=== PATIENT | male | born 1965 | race Caucasian/White ===

== ENCOUNTER 2022-12-20 11:16 | Emergency (ER) | payer BC, MEDICAID ==
[~2022-12-20] VITALS: Ht 172.7 cm; Wt 72.0 kg
[~2022-12-20 11:16] MED LIST: ASPI-1071 PO; ATOR20TA66 PO; CLOP75TA34 PO
--- NOTE | 2022-12-20 11:52 | NUR ---
to ct scan.
[2022-12-20 11:54] LABS: BASOPHILS # (AUTO) 0.1 X10'3 (0-0.2); BASOPHILS % (AUTO) 1.3 % (0-1); EOSINOPHILS # (AUTO) 0.2 X10'3 (0-0.9); HEMATOCRIT 47.4 % (42.0-52.0); LYMPHOCYTES # (AUTO) 1.2 X10'3 (1.1-4.8); LYMPHOCYTES % (AUTO) 20.7 % (21-51); MEAN CORPUSCULAR HGB CONC 33.8 g/dL (33.0-36.5); MEAN CORPUSCULAR VOLUME 88.8 FL (78-98); MEAN PLATELET VOLUME 8.5 FL (7.4-10.4); MONOCYTES # (AUTO) 0.5 X10'3 (0-0.9); MONOCYTES % (AUTO) 9.5 % (2-12); NEUTROPHILS # (AUTO) 3.6 X10'3 (1.8-7.7); NEUTROPHILS % (AUTO) 64.5 % (42-75); PLATELET COUNT 264 X10'3 (140-440); RED BLOOD COUNT 5.34 X10'6 (4.70-6.10); RED CELL DISTRIBUTION WIDTH 13.5 % (11.5-14.5); WHITE BLOOD COUNT 5.7 X10'3 (4.5-11.0)
[2022-12-20 12:01] LABS: APTT 26 SECONDS (22-32)
[2022-12-20 12:04] LABS: ALANINE AMINOTRANSFERASE 21 U/L (12-78); ALBUMIN 3.9 G/DL (3.4-5.0); ALBUMIN/GLOBULIN RATIO 1.2 (1.1-1.5); ALKALINE PHOSPHATASE 117 IU/L (46-116); ANION GAP 5 (8-16); ASPARTATE AMINO TRANSFERASE 18 U/L (10-37); BILIRUBIN,TOTAL 0.5 MG/DL (0.1-1.0); BLOOD UREA NITROGEN 9 MG/DL (7-18); BUN/CREATININE RATIO 9.4 (5.4-32.0); CALCIUM 9.1 MG/DL (8.5-10.1); CHLORIDE 101 MMOL/L (99-107); CREATININE 0.96 MG/DL (0.60-1.10); GLUCOSE 124 MG/DL (70-104); POTASSIUM 3.5 MMOL/L (3.5-5.1); SODIUM 139 MMOL/L (135-145); TOTAL CARBON DIOXIDE 33.1 MMOL/L (24-32); TOTAL PROTEIN 7.2 G/DL (6.4-8.2); eGFR 80 ML/MIN
--- NOTE | 2022-12-20 12:49 | NUR ---
dr betts at bedside.
--- NOTE | 2022-12-20 13:32 | NUR ---
Spoke w/ Dr. Rivera. Plan is to dc pt on Carvedilol 12.5mg. Pt's neuro symptoms are not worsening. Current BP is 191/116.
[2022-12-20] MEDS ORDERED: LORazepam 2 mg/ml vial IV ONE (14:05)
--- NOTE | 2022-12-20 14:18 | NUR ---
Lorazepam given IV per MD order. Pt to MRI.
--- NOTE | 2022-12-20 14:42 | NUR ---
T/C from MRI stating they were only able to scan pt sitting up due to his back and arm pain. They feel they got enough for a dx.
[2022-12-20] MEDS ORDERED: carVEDilol 12.5mg tablet PO ONE (15:10)
[2022-12-20] MEDS ORDERED: cloNIDine 0.1 mg tablet PO ONE (17:05)
[2022-12-20] MEDS ORDERED: CARV-50 PO (17:17)
[2022-12-20] MEDS ORDERED: ASPI81TA52 PO (17:17)
[2022-12-20] MEDS ORDERED: ATOR40TA PO (17:17)
[2022-12-20] MEDS ORDERED: PREG50CA PO (17:17)
[2022-12-20 17:21] VITALS: BP 142/98
[2022-12-20] MEDS ORDERED: carVEDilol 12.5mg tablet PO SCH (20:00)
== END 2022-12-20 17:22 | disposition home or self-care (01) ==
LOC: ER 11:16
DX: I63.9 Cerebral infarction, unspecified (principal); I10 Essential (primary) hypertension; J44.9 Chronic obstructive pulmonary disease, unspecified; F17.200 Nicotine dependence, unspecified, uncomplicated; F15.20 Other stimulant dependence, uncomplicated; Z76.0 Encounter for issue of repeat prescription; Z91.14 Patient's other noncompliance with medication regimen; Z88.2 Allergy status to sulfonamides
CPT/HCPCS: 36415; 70450; 70551; 71045; 80053; 82948; 85025; 85610; 85730; 93005; 96374; 99285; J2060

== ENCOUNTER 2023-02-27 18:53 | Emergency (ER) | payer BC, MEDICAID ==
[~2023-02-27] VITALS: Ht 172.7 cm; Wt 87.4 kg
[~2023-02-27 18:53] MED LIST changes: +ASPI81TA52 PO; +ATOR40TA PO; +CARV-50 PO; +PREG50CA PO
[2023-02-27 19:06] VITALS: BP 160/93
[2023-02-27] MEDS ORDERED: amox tr/potassium clavulanate 875/125mg TAB PO ONE (19:15)
[2023-02-27] MEDS ORDERED: LIDOcaine 1% W/epiNEPHrine 1:100,000 20ml vial SQ ONE (19:30)
[2023-02-27] MEDS ORDERED: LIDOCAINE 2%/EPI 1:100,000 inj. Multi-dose 20 ML VIAL SQ ONE (19:30)
[2023-02-27] MEDS ORDERED: sulfamethoxazole/trimethoprim DS (800/160mg) tablet PO ONE (20:35)
[2023-02-27] MEDS ORDERED: MUPI22OI30 TOP (20:56)
[2023-02-27] MEDS ORDERED: SULF1TAB49 PO (20:56)
--- NOTE | 2023-03-01 15:24 | NUR ---
PT WAS SEEN ON 02/27 AND GIVEN 2 PRESCRIPTIONS. PT CALLED STATING THAT HE LOST HIS PAPER PRESCRIPTIONS AND REQUESTED A REPLACEMENT. OFFER WAS MADE TO CALL HIS RX x2 IN. PT REQUESTED THAT RX's BE CALLED TO [facility] IN [place]. BACTRIM DS; 1 TAB Q8H x 10 DAYS #20 BACTROBAN 22GM TUBE; 1 APPLICATION TOPICALLY Q12H x7 DAYS, #22GM APPLY TO NARES AND UNDER THE NOSE RX x2 WAS CALLED TO [facility] IN [place] REQUESTED. ATTEMPTED TO NOTIFY PT HOWEVER PHONE # PROVIDED IS NOT ACCEPTING PHONE CALLS
== END 2023-02-27 21:02 | disposition home or self-care (01) ==
LOC: ER 18:54
DX: L02.01 Cutaneous abscess of face (principal); I10 Essential (primary) hypertension; J44.9 Chronic obstructive pulmonary disease, unspecified; Z86.14 Personal history of Methicillin resistant Staphylococcus aureus infection; F17.200 Nicotine dependence, unspecified, uncomplicated
CPT/HCPCS: 10060; 99283; A6449

== ENCOUNTER 2023-03-04 20:41 | Emergency (ER) | payer BC, MEDICAID ==
[~2023-03-04] VITALS: Ht 172.7 cm; Wt 76.8 kg
[~2023-03-04 20:41] MED LIST changes: +MUPI22OI30 TOP; +SULF1TAB49 PO
[2023-03-04 21:42] LABS: BASOPHILS # (AUTO) 0.1 X10'3 (0-0.2); BASOPHILS % (AUTO) 1.2 % (0-1); EOSINOPHILS # (AUTO) 0.5 X10'3 (0-0.9); EOSINOPHILS % (AUTO) 5.2 % (0-6); HEMATOCRIT 45.6 % (42.0-52.0); HEMOGLOBIN 15.7 g/dl (14.0-17.9); LYMPHOCYTES # (AUTO) 1.6 X10'3 (1.1-4.8); LYMPHOCYTES % (AUTO) 17.3 % (21-51); MEAN CORPUSCULAR HEMOGLOBIN 29.8 PG (27.0-31.0); MEAN CORPUSCULAR HGB CONC 34.4 g/dL (33.0-36.5); MEAN CORPUSCULAR VOLUME 86.5 FL (78-98); MEAN PLATELET VOLUME 7.5 FL (7.4-10.4); MONOCYTES % (AUTO) 10.4 % (2-12); NEUTROPHILS # (AUTO) 6.2 X10'3 (1.8-7.7); NEUTROPHILS % (AUTO) 65.9 % (42-75); PLATELET COUNT 472 X10'3 (140-440); RED BLOOD COUNT 5.27 X10'6 (4.70-6.10); RED CELL DISTRIBUTION WIDTH 12.8 % (11.5-14.5); WHITE BLOOD COUNT 9.4 X10'3 (4.5-11.0)
[2023-03-04 21:45] LABS: ALANINE AMINOTRANSFERASE 25 U/L (12-78); ALBUMIN 3.4 G/DL (3.4-5.0); ALBUMIN/GLOBULIN RATIO 0.7 (1.1-1.5); ALKALINE PHOSPHATASE 139 IU/L (46-116); ANION GAP 9 (8-16); ASPARTATE AMINO TRANSFERASE 15 U/L (10-37); BILIRUBIN,TOTAL 0.4 MG/DL (0.1-1.0); BLOOD UREA NITROGEN 16 MG/DL (7-18); CALCIUM 9.2 MG/DL (8.5-10.1); CHLORIDE 102 MMOL/L (99-107); GLUCOSE 100 MG/DL (70-104); MAGNESIUM 2.4 MG/DL (1.5-2.4); SODIUM 137 MMOL/L (135-145); TOTAL CARBON DIOXIDE 26.5 MMOL/L (24-32); TOTAL PROTEIN 8.1 G/DL (6.4-8.2); eGFR 76 ML/MIN
[2023-03-04] MEDS ORDERED: iohexol 300mg/ml 100ml inj. ONE (21:56)
[2023-03-04] MEDS ORDERED: LIDOcaine 1% 30ml preserv. free vial IJ ONE (22:10)
[2023-03-04] MEDS ORDERED: bacitracin 15gm ointment TP ONE (22:10)
[2023-03-04] MEDS ORDERED: piperacillin/tazo 3.375gm/50ml 50 ML IV ONE (23:40)
[2023-03-04] MEDS ORDERED: normal saline 1000ml 1,000 ML IV ONE (23:40)
[2023-03-04] MEDS ORDERED: vancomycin/NS 1 GM ADD-VANTAGE 250 ML IV ONE (23:40)
--- NOTE | 2023-03-05 03:11 | NUR ---
patient awake up to bathroom and back to room is currently on cell phone talking with family members about being transferred to a higher level of care due to dx
--- NOTE | 2023-03-05 07:44 | NUR ---
Spoke to CHUY Lara at [facility]. Report given over the phone
[2023-03-05 07:54] LABS: CLARITY,URINE CLEAR (Clear); COLOR,URINE YELLOW (Yellow); GLUCOSE, URINE NEGATIVE (Neg); KETONES,URINE NEGATIVE (Neg); LEUKOCYTE ESTERASE ,URINE NEGATIVE (Neg); NITRITES, URINE NEGATIVE (Neg); OCCULT BLOOD,URINE NEGATIVE (Neg); PROTEIN,URINE NEGATIVE (Neg); UROBILINOGEN,URINE 0.2 E.U/dL (0.2-1.0)
[2023-03-05 07:58] LABS: UA COLLECTION TYPE CLN CATCH MIDSTREAM
--- NOTE | 2023-03-05 08:36 | NUR ---
Per Roberth, Director Veterinary, [facility] called back reported there was no available bed yet at this time.
[2023-03-05] MEDS: vancomycin/NS 1 GM ADD-VANTAGE 250 ML IV SCH ×2 (10:21→21:59)
--- NOTE | 2023-03-05 13:15 | NUR ---
Patient got upset because he did not got his lunch tray. There were no lunch tray delivered. Patient wanted to go home. Patient was discouraged that due to the current infection he has. Patient verbalized understanding that he needed the IV antibiotic. Patient asked me about the transfer to [facility], I told patient that I have not heard any update yet at this time. Late meal request faxed to the dietary department. Patient was given milk, bread and an ice cream temporarily while waiting for his lunch.
--- NOTE | 2023-03-05 13:33 | NUR ---
Patient's son at bedside. I asked the son if the patient called him, he said yes. Per son, the patient called him to be "tow picker". I explained again to the patient in front of the son that patient need IV antibiotic due to the seriousness of his infection. I repeatedly told the patient that I have not have an update yet regarding his transfer to [facility].
--- NOTE | 2023-03-05 13:42 | NUR ---
Lunch tray served to patient
--- NOTE | 2023-03-05 15:34 | NUR ---
Patient got upset being placed in the hallway because another patient needed the bed 10 immediately. I reported this to CHUY Guerra. I notified CLYDE Kirby about patient wanted to leave, she said she will talk to the patient. Patient was notified that Mirta willl speak to her when she get a chance.
[2023-03-05] MEDS ORDERED: morphine 4 MG/ML inj SYRINge IV ONE (15:45)
[2023-03-05] MEDS ORDERED: vancomycin/NS 1 GM ADD-VANTAGE 250 ML IV ONE (15:45)
[2023-03-05] MEDS ORDERED: LORazepam 2 mg/ml vial IV ONE (15:45)
[2023-03-05] MEDS ORDERED: piperacillin/tazo 3.375gm/50ml 50 ML IV SCH (16:00)
[2023-03-05] MEDS: normal saline 1000ml 1,000 ML IV SCH (16:10)
[2023-03-05] MEDS: piperacillin/tazo 3.375gm/50ml 50 ML IV SCH (16:36)
[2023-03-05] MEDS ORDERED: morphine 2 MG/ML inj. syringe IV PRN ×2 (23:50)
[2023-03-05] MEDS ORDERED: HYDROcodone/acetaminophen 10/325mg tab PO PRN (23:50)
[2023-03-05] MEDS ORDERED: HYDROcodone/acetaminophen 5mg/325mg tablet PO PRN (23:50)
[2023-03-06] MEDS: piperacillin/tazo 3.375gm/50ml 50 ML IV SCH ×3 (00:37→17:15)
[2023-03-06] MEDS: normal saline 1000ml 1,000 ML IV SCH ×3 (01:45→22:51)
--- NOTE | 2023-03-06 04:19 | NUR ---
ASSUMED CARE OF PT. AFTER RECEIVING REPORT. PT. TRANSFERRED TO ROOM 4 VIA GURNEY, SLEEPING WITHOUT DISTRESS OBSERVED.
--- NOTE | 2023-03-06 07:16 | NUR ---
PT RESTING ON LEFT SIDE - NO OUTWARD S\S OF DISTRESS NOTED.
--- NOTE | 2023-03-06 07:50 | NUR ---
PT AMBULATORY TO RESTROOM AND BACK TO BED
--- NOTE | 2023-03-06 09:10 | NUR ---
PT CHAGED INTO HOSPITAL GOWN AND HE IS EATING BREAKFAST. HE IS FALLING ASLEEP WHILE SITTING UP. PT ENCOURAGED TO REMAIN IN BED.
[2023-03-06 09:25] LABS: BASOPHILS # (AUTO) 0.1 X10'3 (0-0.2); EOSINOPHILS # (AUTO) 0.5 X10'3 (0-0.9); EOSINOPHILS % (AUTO) 4.9 % (0-6); HEMATOCRIT 47.9 % (42.0-52.0); HEMOGLOBIN 16.2 g/dl (14.0-17.9); LYMPHOCYTES # (AUTO) 1.1 X10'3 (1.1-4.8); LYMPHOCYTES % (AUTO) 11.6 % (21-51); MEAN CORPUSCULAR HEMOGLOBIN 29.5 PG (27.0-31.0); MEAN CORPUSCULAR HGB CONC 33.8 g/dL (33.0-36.5); MEAN CORPUSCULAR VOLUME 87.4 FL (78-98); MEAN PLATELET VOLUME 7.7 FL (7.4-10.4); MONOCYTES # (AUTO) 0.7 X10'3 (0-0.9); MONOCYTES % (AUTO) 8.1 % (2-12); NEUTROPHILS # (AUTO) 6.9 X10'3 (1.8-7.7); NEUTROPHILS % (AUTO) 74.4 % (42-75); PLATELET COUNT 457 X10'3 (140-440); RED BLOOD COUNT 5.48 X10'6 (4.70-6.10); RED CELL DISTRIBUTION WIDTH 12.8 % (11.5-14.5); WHITE BLOOD COUNT 9.2 X10'3 (4.5-11.0)
[2023-03-06 10:10] LABS: ALANINE AMINOTRANSFERASE 18 U/L (12-78); ALBUMIN 3.2 G/DL (3.4-5.0); ALBUMIN/GLOBULIN RATIO 0.7 (1.1-1.5); ALKALINE PHOSPHATASE 132 IU/L (46-116); ANION GAP 9 (8-16); ASPARTATE AMINO TRANSFERASE 12 U/L (10-37); BILIRUBIN,TOTAL 0.4 MG/DL (0.1-1.0); BLOOD UREA NITROGEN 11 MG/DL (7-18); BUN/CREATININE RATIO 12.6 (10.0-20.0); CHLORIDE 101 MMOL/L (99-107); CREATININE 0.87 MG/DL (0.60-1.10); GLUCOSE 165 MG/DL (70-104); MAGNESIUM 2.4 MG/DL (1.5-2.4); PHOSPHORUS 3.3 MG/DL (2.3-4.5); POTASSIUM 4.4 MMOL/L (3.5-5.1); SODIUM 137 MMOL/L (135-145); TOTAL CARBON DIOXIDE 27.1 MMOL/L (24-32); TOTAL PROTEIN 7.6 G/DL (6.4-8.2); eGFR 90 ML/MIN
--- NOTE | 2023-03-06 10:17 | NUR ---
pt only has 1 iv at this time and zosyn and vanco are not compatible. will contact pharmacy and see if we can retime the vanco for 1330 when zosyn is done.
--- NOTE | 2023-03-06 11:45 | NUR ---
PT GETTING IN AND OUT OF BED - HE IS REMINDED TO PLEASE STAY IN BED FOR HIS SAFETY HE IS CONFUSED AND STILL FALLING ASLEEP WHILE SITTING UP.
[2023-03-06] MEDS ORDERED: nicotine 21mg patch - 24 hr TD ONE (13:15)
[2023-03-06] MEDS: vancomycin/NS 1 GM ADD-VANTAGE 250 ML IV SCH ×2 (13:38→22:51)
--- NOTE | 2023-03-06 13:39 | NUR ---
ginger ([facility]) [phone]
--- NOTE | 2023-03-06 13:44 | NUR ---
son at bedside - he states pt is at baseline. pt is more alert and answering questions appropriately now.
--- NOTE | 2023-03-06 14:19 | NUR ---
FAMILY REMAINS AT BEDSIDE - PT ATE LUNCH TRAY
--- NOTE | 2023-03-06 15:57 | NUR ---
pt sleeping at this time. will continue to monitor.
--- NOTE | 2023-03-06 16:50 | NUR ---
PT SCREAMING IN ROOM - ENTERED ROOM AND PT CALLED ME A "FUCKING ASSHOLE" - PT ASKED TO NOT USE THAT LANGUAGE AND TOLD IT WILL NOT BE TOLERATED. HE IS REQUESTING A URINAL. HE IS GIVEN URINAL AND I LEFT THE ROOM.
--- NOTE | 2023-03-06 18:10 | NUR ---
PT APOLOGIZED FOR HIS EARLIER BEHAVIOR - HE IS COLD AND REQUESTED WARM BLANKETS. PT GIVEN 2 BLANKETS.
--- NOTE | 2023-03-06 19:34 | NUR ---
Patient ate 75% of dinner. Now asleep in bed. No signs of distress. No needs at this time.
[2023-03-06] MEDS ORDERED: VANCOMYCIN LEVEL IV ONE (21:30)
--- NOTE | 2023-03-06 23:10 | NUR ---
Patient refusing vital signs, states "im sleeping just let me be".
[2023-03-07] MEDS: piperacillin/tazo 3.375gm/50ml 50 ML IV SCH ×3 (00:30→16:42)
--- NOTE | 2023-03-07 06:34 | NUR ---
Patient received in bed asleep on a hospital bed.
[2023-03-07] MEDS: normal saline 1000ml 1,000 ML IV SCH ×2 (07:45→17:49)
[2023-03-07 08:17] LABS: BASOPHILS # (AUTO) 0.2 X10'3 (0-0.2); EOSINOPHILS # (AUTO) 0.4 X10'3 (0-0.9); LYMPHOCYTES # (AUTO) 1.1 X10'3 (1.1-4.8); MEAN PLATELET VOLUME 7.7 FL (7.4-10.4); NEUTROPHILS # (AUTO) 4.6 X10'3 (1.8-7.7); WHITE BLOOD COUNT 6.8 X10'3 (4.5-11.0)
[2023-03-07 08:18] LABS: BASOPHILS % (AUTO) 2.6 % (0-1); EOSINOPHILS % (AUTO) 5.5 % (0-6); HEMATOCRIT 47.6 % (42.0-52.0); MEAN CORPUSCULAR HEMOGLOBIN 29.3 PG (27.0-31.0); MEAN CORPUSCULAR HGB CONC 33.6 g/dL (33.0-36.5); MEAN CORPUSCULAR VOLUME 87.4 FL (78-98); MONOCYTES # (AUTO) 0.6 X10'3 (0-0.9); MONOCYTES % (AUTO) 8.5 % (2-12); NEUTROPHILS % (AUTO) 67.4 % (42-75); PLATELET COUNT 445 X10'3 (140-440); RED BLOOD COUNT 5.45 X10'6 (4.70-6.10); RED CELL DISTRIBUTION WIDTH 12.9 % (11.5-14.5)
[2023-03-07 08:40] LABS: ALBUMIN 3.1 G/DL (3.4-5.0); ANION GAP 9 (8-16); BLOOD UREA NITROGEN 10 MG/DL (7-18); BUN/CREATININE RATIO 11.2 (10.0-20.0); CALCIUM 8.8 MG/DL (8.5-10.1); CHLORIDE 103 MMOL/L (99-107); CREATININE 0.89 MG/DL (0.60-1.10); GLUCOSE 123 MG/DL (70-104); SODIUM 139 MMOL/L (135-145); TOTAL CARBON DIOXIDE 27.3 MMOL/L (24-32); eGFR 87 ML/MIN
--- NOTE | 2023-03-07 09:30 | NUR ---
beddings changed, vital signs taken.
--- NOTE | 2023-03-07 10:34 | NUR ---
vancomycin iv not available in the omniEm/pharmacist called.
[2023-03-07] MEDS: VANCOmycin 1250MG/NS 250ml Bag 250 ML IV SCH ×2 (10:42→22:32)
--- NOTE | 2023-03-07 12:35 | NUR ---
Patient states "i have not eaten for 3 days!",Requested a diet order from Dr. Rivera.Regular diet order.Still no accepting facility at this time.
--- NOTE | 2023-03-07 13:45 | NUR ---
patient eating lunch.
--- NOTE | 2023-03-07 16:10 | NUR ---
PT RESTING IN BED, VISITOR AT BEDSIDE
--- NOTE | 2023-03-07 16:30 | NUR ---
MULTIPLE ATTEMPT TO EXPLAIN TO PT WHY HE NEES TO STAY HERE UNTIL TRANSFERRED TO ANOTHER FACILTITY. REQUEST DR CUELLAR TO GIVE PT UPDATE. SHELLY JOSHI HAS BEEN UPDATED PT EACH DAY.
--- NOTE | 2023-03-07 17:52 | NUR ---
AMBULATED TO BR WITH STEADY GAIT
[2023-03-07] MEDS ORDERED: iohexol 300mg/ml 100ml inj. ONE (20:23)
--- NOTE | 2023-03-07 20:40 | NUR ---
TO CT VIA [facility]
--- NOTE | 2023-03-07 22:09 | NUR ---
Spoke to Dr. Patel regarding transfer status and poc. states the plan is still to transfer patient for ENT,possible debridement.
[2023-03-08] MEDS: normal saline 1000ml 1,000 ML IV SCH ×3 (03:45→23:45)
--- NOTE | 2023-03-08 06:33 | NUR ---
Patient received asleep.We will continue to monitor.
--- NOTE | 2023-03-08 06:51 | NUR ---
Requested wound culture to right facial abscess from Dr. Rivera.Order obtained and carried out.
[2023-03-08] MEDS: piperacillin/tazo 3.375gm/50ml 50 ML IV SCH ×3 (07:20→16:55)
--- NOTE | 2023-03-08 07:39 | NUR ---
Patient moved to room 7 in a hospital bed. Wound culture collected from right facial wound abscess.Daily hygiene products offered and left at bedside.
[2023-03-08 08:27] LABS: BASOPHILS % (AUTO) 0.2 % (0-1); EOSINOPHILS # (AUTO) 0.3 X10'3 (0-0.9); HEMATOCRIT 47.4 % (42.0-52.0); HEMOGLOBIN 15.8 g/dl (14.0-17.9); LYMPHOCYTES # (AUTO) 1.2 X10'3 (1.1-4.8); LYMPHOCYTES % (AUTO) 16.2 % (21-51); MEAN CORPUSCULAR HEMOGLOBIN 29.3 PG (27.0-31.0); MEAN CORPUSCULAR HGB CONC 33.3 g/dL (33.0-36.5); MEAN PLATELET VOLUME 7.6 FL (7.4-10.4); MONOCYTES # (AUTO) 0.6 X10'3 (0-0.9); MONOCYTES % (AUTO) 8.1 % (2-12); NEUTROPHILS # (AUTO) 5.3 X10'3 (1.8-7.7); NEUTROPHILS % (AUTO) 71.5 % (42-75); PLATELET COUNT 456 X10'3 (140-440); RED BLOOD COUNT 5.39 X10'6 (4.70-6.10); RED CELL DISTRIBUTION WIDTH 12.9 % (11.5-14.5); WHITE BLOOD COUNT 7.4 X10'3 (4.5-11.0)
[2023-03-08 08:36] LABS: ALBUMIN 3.1 G/DL (3.4-5.0); ANION GAP 8 (8-16); BLOOD UREA NITROGEN 13 MG/DL (7-18); BUN/CREATININE RATIO 15.5 (10.0-20.0); CALCIUM 8.8 MG/DL (8.5-10.1); CHLORIDE 102 MMOL/L (99-107); CREATININE 0.84 MG/DL (0.60-1.10); GLUCOSE 118 MG/DL (70-104); SODIUM 138 MMOL/L (135-145); TOTAL CARBON DIOXIDE 27.9 MMOL/L (24-32); eGFR > 90 ML/MIN
--- NOTE | 2023-03-08 10:08 | NUR ---
Vancomycin not available in the omni,called pharmacy spoke to
[2023-03-08] MEDS: VANCOmycin 1250MG/NS 250ml Bag 250 ML IV SCH ×2 (10:33→22:41)
--- NOTE | 2023-03-08 14:00 | NUR ---
patient eating lunch.
--- NOTE | 2023-03-08 17:00 | NUR ---
Still no accepting facility at this time.
--- NOTE | 2023-03-08 17:55 | NUR ---
Patient asleep.Awaiting for dinner.
[2023-03-08] MEDS ORDERED: VANCOMYCIN LEVEL IV ONE (21:30)
[2023-03-09] MEDS: piperacillin/tazo 3.375gm/50ml 50 ML IV SCH ×2 (01:00→08:00)
[2023-03-09 03:30] VITALS: BP 155/73
[2023-03-09 08:57] LABS: HEMOGLOBIN 15.3 g/dl (14.0-17.9); MEAN PLATELET VOLUME 7.8 FL (7.4-10.4); MONOCYTES # (AUTO) 0.5 X10'3 (0-0.9)
[2023-03-09 08:59] LABS: ALANINE AMINOTRANSFERASE 17 U/L (12-78); ALBUMIN/GLOBULIN RATIO 0.8 (1.1-1.5); ALKALINE PHOSPHATASE 112 IU/L (46-116); ANION GAP 8 (8-16); ASPARTATE AMINO TRANSFERASE 10 U/L (10-37); BASOPHILS # (AUTO) 0.1 X10'3 (0-0.2); BASOPHILS % (AUTO) 1.8 % (0-1); BILIRUBIN,TOTAL 0.3 MG/DL (0.1-1.0); BLOOD UREA NITROGEN 12 MG/DL (7-18); BUN/CREATININE RATIO 12.5 (10.0-20.0); C-REACTIVE PROTEIN 0.57 MG/DL (0.0-0.5); CALCIUM 8.6 MG/DL (8.5-10.1); CHLORIDE 104 MMOL/L (99-107); CREATININE 0.96 MG/DL (0.60-1.10); EOSINOPHILS # (AUTO) 0.4 X10'3 (0-0.9); EOSINOPHILS % (AUTO) 5.7 % (0-6); GLUCOSE 113 MG/DL (70-104); HEMATOCRIT 45.4 % (42.0-52.0); LYMPHOCYTES # (AUTO) 1.5 X10'3 (1.1-4.8); LYMPHOCYTES % (AUTO) 21.7 % (21-51); MEAN CORPUSCULAR HEMOGLOBIN 29.5 PG (27.0-31.0); MEAN CORPUSCULAR HGB CONC 33.7 g/dL (33.0-36.5); MEAN CORPUSCULAR VOLUME 87.4 FL (78-98); MONOCYTES % (AUTO) 7.7 % (2-12); NEUTROPHILS # (AUTO) 4.3 X10'3 (1.8-7.7); NEUTROPHILS % (AUTO) 63.1 % (42-75); PLATELET COUNT 425 X10'3 (140-440); POTASSIUM 3.9 MMOL/L (3.5-5.1); RED BLOOD COUNT 5.19 X10'6 (4.70-6.10); RED CELL DISTRIBUTION WIDTH 12.9 % (11.5-14.5); SODIUM 139 MMOL/L (135-145); TOTAL CARBON DIOXIDE 27.5 MMOL/L (24-32); TOTAL PROTEIN 6.8 G/DL (6.4-8.2); WHITE BLOOD COUNT 6.8 X10'3 (4.5-11.0); eGFR 80 ML/MIN
[2023-03-09] MEDS: normal saline 1000ml 1,000 ML IV SCH (09:45)
[2023-03-09] MEDS ORDERED: VANCOMYCIN 1,500MG in NS 300ml IVPB IV SCH (11:00)
[2023-03-09] MEDS ORDERED: AMOX-117 PO (13:08)
[2023-03-09] MEDS ORDERED: SULF1TAB49 PO (13:08)
[2023-03-09] MEDS ORDERED: CHLO118M PO (13:08)
[2023-03-10] MEDS ORDERED: VANCOMYCIN LEVEL IV ONE (22:30)
== END 2023-03-09 15:24 | disposition home or self-care (01) ==
LOC: ER 20:42
DX: L02.01 Cutaneous abscess of face (principal); Z20.822 Contact with and (suspected) exposure to COVID-19; I10 Essential (primary) hypertension; J44.9 Chronic obstructive pulmonary disease, unspecified; F32.A Depression, unspecified; F15.10 Other stimulant abuse, uncomplicated; Z88.2 Allergy status to sulfonamides; Z79.899 Other long term (current) drug therapy; Z79.82 Long term (current) use of aspirin
CPT/HCPCS: 36415; 70487; 71045; 80048; 80053; 80202; 81003; 83605; 83735; 84100; 84145; 85025; 85651; 86140; 87040; 87070; 87077; 87186; 87811; 93005; 96365; 96366; 96367; 96368; 96375; 96376; 99285; J2270; J2543; J3370; J3490; J7030; J7040; Q9967

== ENCOUNTER 2023-05-12 16:00 | Emergency (ER) | payer BC, MEDICAID ==
[~2023-05-12] VITALS: Ht 172.7 cm; Wt 71.6 kg
[~2023-05-12 16:00] MED LIST changes: +CHLO118M PO; -MUPI22OI30 TOP; -SULF1TAB49 PO
[2023-05-12 16:06] VITALS: BP 142/103
[2023-05-12] MEDS ORDERED: LIDOcaine 1% W/epiNEPHrine 1:100,000 20ml vial SQ ONE (20:05)
[2023-05-12] MEDS ORDERED: DOXYCYCLINE 100MG CAPSULE PO STA (20:36)
[2023-05-12] MEDS ORDERED: DOXY100C77 PO (20:39)
[2023-05-12] MEDS ORDERED: CEPH250T PO (20:39)
[2023-05-12] MEDS ORDERED: cephalexin 250mg capsule PO ONE (20:40)
== END 2023-05-12 21:11 | disposition home or self-care (01) ==
LOC: ER 16:00
DX: L02.31 Cutaneous abscess of buttock (principal); I10 Essential (primary) hypertension; J44.9 Chronic obstructive pulmonary disease, unspecified; F15.20 Other stimulant dependence, uncomplicated; Z88.2 Allergy status to sulfonamides
CPT/HCPCS: 10060; 99283; A6449

== ENCOUNTER 2023-06-25 12:00 | Emergency (ER) | payer BC, MEDICAID ==
[~2023-06-25] VITALS: Ht 172.7 cm; Wt 63.6 kg
[2023-06-25 12:53] VITALS: BP 153/103; PULSE 96; TEMP 97.2; O2SAT 96
[2023-06-25] MEDS ORDERED: HYDROcodone/acetaminophen 10/325mg tab PO ONE (12:55)
[2023-06-25] MEDS ORDERED: ibuprofen tablet 400 MG TABLET PO ONE (12:55)
[2023-06-25 13:51] VITALS: RESP 18
== END 2023-06-25 14:01 | disposition home or self-care (01) ==
LOC: ER 12:00
DX: S42.002A Fracture of unspecified part of left clavicle, initial encounter for closed fracture (principal); I10 Essential (primary) hypertension; J44.9 Chronic obstructive pulmonary disease, unspecified; F32.A Depression, unspecified; Z86.14 Personal history of Methicillin resistant Staphylococcus aureus infection; F15.10 Other stimulant abuse, uncomplicated; Z59.00 Homelessness unspecified; Z56.0 Unemployment, unspecified; Z88.2 Allergy status to sulfonamides; Z79.899 Other long term (current) drug therapy; Z79.82 Long term (current) use of aspirin; V19.9XXA Pedal cyclist (driver) (passenger) injured in unspecified traffic accident, initial encounter; Y93.89 Activity, other specified; Y92.89 Other specified places as the place of occurrence of the external cause; Y99.8 Other external cause status
CPT/HCPCS: 73030; 99283

== ENCOUNTER 2024-12-20 14:09 | Emergency (ER) | payer MEDICARE, MEDICAID ==
[~2024-12-20] VITALS: Ht 170.2 cm; Wt 82.7 kg
[~2024-12-20 14:09] MED LIST changes: -ASPI-1071 PO; -ATOR20TA66 PO; -ATOR40TA PO; +ATOR40TA14 PO; -CARV-50 PO; +CARV12.5 PO; -CHLO118M PO; +CLOP-32 PO; -CLOP75TA34 PO; -PREG50CA PO; +PREG50CA65 PO
[2024-12-20 14:29] VITALS: TEMP 98.4
[2024-12-20 16:02] VITALS: BP 134/90; PULSE 84; O2SAT 98
[2024-12-20 16:48] VITALS: RESP 18
[2024-12-20 16:49] LABS: BASOPHILS # (AUTO) 0.1 X10'3 (0-0.2); BASOPHILS % (AUTO) 0.6 % (0-1); EOSINOPHILS # (AUTO) 0.2 X10'3 (0-0.9); EOSINOPHILS % (AUTO) 1.6 % (0-6); HEMATOCRIT 44.6 % (42.0-52.0); HEMOGLOBIN 14.9 g/dl (14.0-17.9); LYMPHOCYTES # (AUTO) 0.5 X10'3 (1.1-4.8); LYMPHOCYTES % (AUTO) 5.7 % (21-51); MEAN CORPUSCULAR HEMOGLOBIN 30.4 PG (27.0-31.0); MEAN CORPUSCULAR HGB CONC 33.5 g/dL (33.0-36.5); MEAN CORPUSCULAR VOLUME 90.9 FL (78-98); MEAN PLATELET VOLUME 7.8 FL (7.4-10.4); MONOCYTES # (AUTO) 0.9 X10'3 (0-0.9); NEUTROPHILS # (AUTO) 7.7 X10'3 (1.8-7.7); NEUTROPHILS % (AUTO) 82.1 % (42-75); PLATELET COUNT 313 X10'3 (140-440); RED BLOOD COUNT 4.91 X10'6 (4.70-6.10); RED CELL DISTRIBUTION WIDTH 13.7 % (11.5-14.5); WHITE BLOOD COUNT 9.4 X10'3 (4.5-11.0)
[2024-12-20 17:07] LABS: ALANINE AMINOTRANSFERASE 26 U/L (12-78); ALBUMIN 3.2 G/DL (3.4-5.0); ALBUMIN/GLOBULIN RATIO 0.8 (1.1-1.5); ALKALINE PHOSPHATASE 108 IU/L (46-116); ANION GAP 5 (8-16); ASPARTATE AMINO TRANSFERASE 15 U/L (10-37); BILIRUBIN,TOTAL 0.5 MG/DL (0.1-1.0); BLOOD UREA NITROGEN 15 MG/DL (7-18); BUN/CREATININE RATIO 15.6 (10.0-20.0); CALCIUM 8.6 MG/DL (8.5-10.1); CHLORIDE 103 MMOL/L (99-107); CREATININE 0.96 MG/DL (0.60-1.10); GLUCOSE 99 MG/DL (70-104); POTASSIUM 4.4 MMOL/L (3.5-5.1); SODIUM 139 MMOL/L (135-145); TOTAL CARBON DIOXIDE 31.1 MMOL/L (24-32); TOTAL PROTEIN 7.3 G/DL (6.4-8.2); eCRCL 76 ML/MIN; eGFR 80 ML/MIN
[2024-12-20 19:22] LABS: PROTHROMBIN TIME 10.8 SECONDS (9.0-12.0)
[2024-12-20 19:24] LABS: APTT 27 SECONDS (22-32)
== END 2024-12-20 18:19 | disposition home or self-care (01) ==
LOC: ER 14:10
DX: S39.92XA Unspecified injury of lower back, initial encounter (principal); R60.0 Localized edema; J44.9 Chronic obstructive pulmonary disease, unspecified; I10 Essential (primary) hypertension; F32.A Depression, unspecified; Z86.73 Personal history of transient ischemic attack (TIA), and cerebral infarction without residual deficits; F15.90 Other stimulant use, unspecified, uncomplicated; Z88.2 Allergy status to sulfonamides; Z95.1 Presence of aortocoronary bypass graft; Z98.890 Other specified postprocedural states; Z79.82 Long term (current) use of aspirin; W19.XXXA Unspecified fall, initial encounter; Y93.89 Activity, other specified; Y92.89 Other specified places as the place of occurrence of the external cause; Y99.8 Other external cause status
CPT/HCPCS: 36415; 71045; 72100; 73552; 73590; 80053; 85025; 85610; 85730; 93005; 93971; 99285

== ENCOUNTER 2025-02-20 17:44 | Emergency (ER) | payer MEDICARE, MEDICAID ==
[~2025-02-20] VITALS: Ht 167.6 cm; Wt 83.2 kg
[2025-02-20] MEDS: cephalexin 250mg capsule PO ONE (21:18)
[2025-02-20] MEDS: ondansetron 4mg rapidly disintigrating tab PO ONE (21:18)
[2025-02-20] MEDS ORDERED: CEPH-585 PO (21:35)
[2025-02-20 21:57] VITALS: BP 149/89; PULSE 64; RESP 18; TEMP 97.7; O2SAT 93
== END 2025-02-20 21:59 | disposition home or self-care (01) ==
LOC: ER 17:45
DX: M70.22 Olecranon bursitis, left elbow (principal); L03.116 Cellulitis of left lower limb; S09.90XA Unspecified injury of head, initial encounter; I10 Essential (primary) hypertension; J44.9 Chronic obstructive pulmonary disease, unspecified; Z86.73 Personal history of transient ischemic attack (TIA), and cerebral infarction without residual deficits; Z88.2 Allergy status to sulfonamides; Z95.1 Presence of aortocoronary bypass graft; Z79.82 Long term (current) use of aspirin; X58.XXXA Exposure to other specified factors, initial encounter; Y93.89 Activity, other specified; Y92.89 Other specified places as the place of occurrence of the external cause; Y99.8 Other external cause status
CPT/HCPCS: 70450; 73080; 99284

== ENCOUNTER 2025-03-30 13:11 | Emergency (ER) | payer MEDICARE, MEDICAID ==
[~2025-03-30] VITALS: Ht 172.7 cm; Wt 83.0 kg
[2025-03-30 14:23] LABS: BASOPHILS # (AUTO) 0.1 X10'3 (0-0.2); EOSINOPHILS # (AUTO) 0.2 X10'3 (0-0.9); LYMPHOCYTES # (AUTO) 0.8 X10'3 (1.1-4.8); MONOCYTES # (AUTO) 0.6 X10'3 (0-0.9); PLATELET COUNT 308 X10'3 (140-440)
[2025-03-30 14:25] LABS: BASOPHILS % (AUTO) 2.4 % (0-1); EOSINOPHILS % (AUTO) 3.8 % (0-6); HEMOGLOBIN 14.4 g/dl (14.0-17.9); LYMPHOCYTES % (AUTO) 17.7 % (21-51); MEAN CORPUSCULAR HEMOGLOBIN 29.3 PG (27.0-31.0); MEAN CORPUSCULAR HGB CONC 32.8 g/dL (33.0-36.5); MEAN CORPUSCULAR VOLUME 89.1 FL (78-98); MEAN PLATELET VOLUME 8.5 FL (7.4-10.4); MONOCYTES % (AUTO) 12.2 % (2-12); NEUTROPHILS % (AUTO) 63.9 % (42-75); RED BLOOD COUNT 4.93 X10'6 (4.70-6.10); WHITE BLOOD COUNT 4.6 X10'3 (4.5-11.0)
[2025-03-30 14:33] LABS: APTT 28 SECONDS (22-32); PROTHROMBIN TIME 10.6 SECONDS (9.0-12.0)
--- NOTE | 2025-03-30 14:49 | RADIOLOGY REPORT ---
CLINICAL INFORMATION: Fall injury. TECHNIQUE: Axial imaging was obtained through the brain without contrast. Coronal and sagittal reform atted images were obtained, reviewed, and stored. Images were reviewed in brain and bone windows. Al l CT scans at this medical facility are performed using dose modulation techniques as appropriate to a performed exam including the following: Automated exposure control was utilized; adjustment of the MA and/or KV according to patient size; and use of iterative reconstruction technique. CTDIvol = 53.3 9, 48.82, 0.07, 0.07 mGy DLP = 1324.51 mGy-cm COMPARISON: CT CT HEAD on DOS: 02/20/25, CT CT HEAD on DOS: 03/03/24 FINDINGS: There is no acute intracranial hemorrhage. No mass effect or midline shift. Scattered areas of hypoattenuation are seen in the periventricular and subcortical white matter, which are nonspecif ic but most likely sequelae of small vessel ischemic disease. Lucencies in the left basal ganglia, li bin chronic lacunar infarcts. The ventricles and sulci are within normal limits in size for age. Bas al cisterns are patent. The calvarium is unremarkable. Paranasal sinuses and mastoid air cells are c lear. IMPRESSION: 1. No CT evidence of acute intracranial abnormality. 2. Nonacute findings as described above.
[2025-03-30 15:03] LABS: ALBUMIN 3.9 G/DL (3.4-5.0); ANION GAP 7 (8-16); BLOOD UREA NITROGEN 15 MG/DL (7-18); BUN/CREATININE RATIO 14.3 (10.0-20.0); CALCIUM 8.7 MG/DL (8.5-10.1); CHLORIDE 103 MMOL/L (99-107); CREATININE 1.05 MG/DL (0.60-1.10); GLUCOSE 101 MG/DL (70-104); POTASSIUM 4.2 MMOL/L (3.5-5.1); PRO BRAIN NATRIURETIC PEPTIDE 35 PG/ML (0-125); SODIUM 141 MMOL/L (135-145); TOTAL CARBON DIOXIDE 30.9 MMOL/L (24-32); eCRCL 71 ML/MIN; eGFR 72 ML/MIN
--- NOTE | 2025-03-30 15:06 | Physician Documentation ---
History of Present Illness ~ Chief Complaint: Mechanical Fall Stated Complaint: HEAD LAC FALL NO THINNERS Time Seen by MD: 15:05 Primary Medical Doctor: NONE HPI Patient is seen today with complaints of having stumbled and sustaining a ground level fall where he fell backwards and hit the back of his head just prior to arrival today. Patient denies taking any blood thinners. Patient states he is historically very unstable and unsteady on his feet and falls regularly. Patient has no new or other concern or complaint at this time. Patient denies any loss of consciousness currently denies any headache or changes in vision or hearing. Tetanus within 5 Years?: No Medication Reconciliation Allergies: Coded Allergies: Sulfa (Sulfonamide Antibiotics) (Verified Allergy, Unknown, 03/30/25) Scheduled Aspirin (Aspirin EC), 1 TAB PO DAILY, (Reported) Atorvastatin Calcium (Lipitor), 1 TAB PO DAILY, (Reported) Carvedilol (Coreg), 1 TAB PO Q12H, (Reported) Clopidogrel Bisulfate (Plavix), 1 TAB PO DAILY, (Reported) Pregabalin (Pregabalin), 1 CAP PO Q8H, (Reported) Past Medical History Past Medical History: CVA/TIA/Stroke, Hypertension, COPD, Hernia, MRSA Abscess, Depression Past Surgical History: abdominal surgery Other Past Surgical History: Hernia Removal Surgery Patient History: (CABG) Coronary artery bypass grafting FATHER, , Age: 51, Onset:40's - 50 ([place]) Myocardial infarction FATHER, , Age: 51, Onset:40's - 50 Alcohol Use: Occasionally Drug Use: methamphetamine Lives In: Homeless Occupation: unemployed Review of Systems Constitutional: Denies: chills, fever, weakness Eyes: Denies: pain, blurred vision ENT: Denies: ear pain, nose pain, throat pain, mouth pain Respiratory: Denies: cough, shortness of breath Cardiovascular: Denies: chest pain, palpitations Gastrointestinal: Denies: abdominal pain, nausea, vomiting Genitourinary: Denies: burning, dysuria Male Genitalia: Denies: penile discharge, testicular pain Neurological: Denies: headache, dizziness Musculoskeletal: Denies: pain, swelling Integumentary: Denies: rash, lesions Allergic/Immunologic: Denies: hives, itching Hematologic/Lymphatic: Denies: no symptoms reported Psychiatric: Denies: depression, anxiety Physical Exam Vital Signs: Temperature: 97.0, Heart Rate: 78, Respiratory Rate: 14, BP: 152/104, Pulse Oximetry: 96, Weight: 83.000 Physical Exam General: Awake and Alert, no acute distress. HEENT: Patient has 6 cm laceration of his scalp in the area of the oc ciput/crown of his head. Patient has minimal surrounding swelling. Bleeding is currently well controlled. Conjunctiva pink, Sclera clear, Mucus Membranes moist. Neck: Supple without masses and tenderness. Resp: Unlabored. Lungs clear to auscultation bilaterally. Heart: Regular Rate and rhythm, normal S1 and S2 without murmur, rub or gallop. Abdomen: Soft and non tender no organomegaly Skin: Patient has 6 cm laceration of his scalp in the area of the occiput/crown of his head. Patient has minimal surrounding swelling. Bleeding is currently well controlled. Progress Results/Orders Results/Orders Completed Orders - AISHA PEDERSEN PAC Lidocaine 1% W/Epi 1:100,000 (Xylocaine (03/30/25 15:56) Medications Received in ER Medications (Trade) Dose Ordered Sig/Wendy Route PRN Reason Start Time Stop Time Status Last Admin Dose Admin (Xylocaine 1%-EPI 1:100,000) 20 ml ONCE STAT SQ 03/30/25 15:56 03/30/25 15:57 DC 03/30/25 17:32 20 ML Vital Signs 03/30/25 13:26 Temp 97.0 Pulse 78 Resp 14 B/P (MAP) 152/104 Pulse Ox 96 Laboratory Tests Test 03/30/25 14:10 White Blood Count 4.6 Red Blood Count 4.93 Hemoglobin 14.4 Hematocrit 44.0 Mean Corpuscular Volume 89.1 Mean Corpuscular Hemoglobin 29.3 Mean Corpuscular Hemoglobin Concent 32.8 L Red Cell Distribution Width 14.0 Platelet Count 308 Mean Platelet Volume 8.5 Neutrophils (%) (Auto) 63.9 Lymphocytes (%) (Auto) 17.7 L Monocytes (%) (Auto) 12.2 H Eosinophils (%) (Auto) 3.8 Basophils (%) (Auto) 2.4 H Neutrophils # (Auto) 3.0 Lymphocytes # (Auto) 0.8 L Monocytes # (Auto) 0.6 Eosinophils # (Auto) 0.2 Basophils # (Auto) 0.1 CBC Comment Prothrombin Time 10.6 INR International Normalized Ratio 1.0 Activated Partial Thromboplast Time 28 Coagulation Comments Sodium Level 141 Potassium Level 4.2 Chloride Level 103 Carbon Dioxide Level 30.9 Anion Gap 7 L Blood Urea Nitrogen 15 Creatinine 1.05 Estimated GFR/1.73 m2 72 BUN/Creatinine Ratio 14.3 Glucose Level 101 Calcium Level 8.7 Pro-B-Type Natriuretic Peptide 35 Albumin 3.9 Chemistry Comments EKG/XRAY/CT/US/VASC/MRI CT : Impression CAT SCAN Patient: MAYRA MAYORGA Medical Record: [id number] [facility] : 1965, Age: 59 Sex: Male Location: ER Patient Status: [facility] ER Service Date/Time: 03/30/251424 Ordering Physician: YANET GUERRERO MD Exam: CT HEAD CLINICAL INFORMATION: Fall injury. TECHNIQUE: Axial imaging was obtained through the brain without contrast. Coronal and sagittal reformatted images were obtained, reviewed, and stored. Images were reviewed in brain and bone windows. All CT scans at this medical facility are performed using dose modulation techniques as appropriate to a performed exam including the following: Automated exposure control was utilized; adjustment of the MA and/or KV according to patient size; and use of iterative reconstruction technique. CTDIvol = 53.39, 48.82, 0.07, 0.07 mGy DLP = 1324.51 mGy-cm COMPARISON: CT CT HEAD on DOS: 02/20/25, CT CT HEAD on DOS: 03/03/24 FINDINGS: There is no acute intracranial hemorrhage. No mass effect or midline shift. Scattered areas of hypoattenuation are seen in the periventricular and subcortical white matter, which are nonspecific but most likely sequelae of small vessel ischemic disease. Lucencies in the left basal ganglia, likely chronic lacunar infarcts. The ventricles and sulci are within normal limits in size for age. Basal cisterns are patent. The calvarium is unremarkable. Paranasal sinuses and mastoid air cells are clear. IMPRESSION: 1. No CT evidence of acute intracranial abnormality. 2. Nonacute findings as described above. Electronically Signed by:MANOHAR SHULTZ DO Date & Time: 03/30/25 1447 Dictated by: MANOHAR SHULTZ DO Dictation date and time: 03/30/25 1424 Primary Care Provider: NO PRIMARY CARE PROVIDER cc: YANET GUERRERO MD ~ Medical Decision Making Findings Patient is seen today with complaints of having stumbled and sustaining a ground level fall where he fell backwards and hit the back of his head just prior to arrival today. Patient denies taking any blood thinners. Patient states he is historically very unstable and unsteady on his feet and falls regularly. Patient has no new or other concern or complaint at this time. Patient denies any loss of consciousness currently denies any headache or changes in vision or hearing. Patient did have laceration of scalp anesthetized and cleansed and sterilized and closed with eight vu that will need to be removed in seven days. Patient voiced understanding. Return to ED with any worsening, concerning or changing symptoms. Patient will follow up with primary or return to ED for staple removal in seven days. CT scan of head showed no acute findings. Departure Disposition: 01 HOME / SELF CARE / HOMELESS Impression: Primary Impression: Fall Qualified Codes: W19.XXXA - Unspecified fall, initial encounter Additional Impression: Scalp laceration Qualified Codes: S01.01XA - Laceration without foreign body of scalp, initial encounter Condition: Improved Discharge Instructions: Fall Prevention in the Home, Adult, [id number], Laceration Care, Adult, [id number] Additional Instructions: Patient did have laceration of scalp anesthetized and cleansed and sterilized and closed with eight vu that will need to be removed in seven days. Patient voiced understanding. Return to ED with any worsening, concerning or changing symptoms. Patient will follow up with primary or return to ED for staple removal in seven days. CT scan of head showed no acute findings. Referrals: NO PRIMARY CARE PROVIDER (PCP) Signature Scribe Signature: No scribe Attestation: No scribe AISHA PEDERSEN PAC March 30, 2025 15:06
[2025-03-30] MEDS: LIDOcaine 1% W/epiNEPHrine 1:100,000 20ml vial SQ STA (17:32)
[2025-03-30 17:34] VITALS: PULSE 67; RESP 16; TEMP 97
[2025-03-30 17:53] VITALS: BP 160/92; O2SAT 96
== END 2025-03-30 17:56 | disposition home or self-care (01) ==
LOC: ER 13:13
DX: S01.01XA Laceration without foreign body of scalp, initial encounter (principal); R51.9 Headache, unspecified; I10 Essential (primary) hypertension; J44.9 Chronic obstructive pulmonary disease, unspecified; F32.A Depression, unspecified; Z86.73 Personal history of transient ischemic attack (TIA), and cerebral infarction without residual deficits; Z88.2 Allergy status to sulfonamides; Z95.1 Presence of aortocoronary bypass graft; W01.0XXA Fall on same level from slipping, tripping and stumbling without subsequent striking against object, initial encounter; Y93.89 Activity, other specified; Y92.89 Other specified places as the place of occurrence of the external cause; Y99.8 Other external cause status
CPT/HCPCS: 12002; 70450; 80048; 83880; 85025; 85610; 85730; 99284; A6402; J3490; Z7610; A6449